=== PATIENT | female | born 1985 | race African-American/Black ===

== ENCOUNTER 2016-11-25 03:52 | Emergency (ER) | payer OTHER, MEDICAID ==
[2016-11-25] MEDS ORDERED: ACETAMINOPHEN 325 MG TABLET PO ONE (04:04)
[2016-11-25] MEDS ORDERED: ONDANSETRON 4 MG TAB.RAPDIS PO ONE (04:04)
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
[2016-11-25 05:14] VITALS: BP 131/80
[2016-11-25] MEDS ORDERED: HYDROMORPHONE HCL INJ/PF 2 MG/ML AMPULE ONE (09:02)
== END 2016-11-25 05:12 | disposition home or self-care (01) ==
LOC: ER 03:52
DX: S09.90XA Unspecified injury of head, initial encounter (principal); Y04.2XXA Assault by strike against or bumped into by another person, initial encounter
CPT/HCPCS: 99284; S0119

== ENCOUNTER 2016-12-03 17:07 | Emergency (ER) | payer MEDICAID, OTHER ==
[2016-12-03 17:28] VITALS: BP 134/95
[2016-12-03] MEDS ORDERED: CIPROFLOXACIN HCL/DEXAMETH OTIC DROP 7.5 ML AS ONE (18:24)
--- NOTE | 2016-12-03 18:26 | ER Document Report ---
HPI - HPI Pain Level: 3 Notes: Patient is a 31-year-old female presents the ED complaining of left ear pain and swelling 3 days. Patient states that she was swimming recently but began noticing the pain a few days ago. Patient states that she has available anything in that ear because of the pain. The pain does not radiate. The pain is described as sharp. Otherwise she is still eating and drinking without any difficulties. She has not noticed any discharge. Denies any drug allergies, daily medications, significant past medical history. Patient is from [place] and that is where her PCM is located. Patient admits to smoking but denies any other illicit drug use. Denies any fever, headache, nasal congestion/discharge , postnasal drip, sore throat, dysphagia, facial swelling, neck pain or stiffness, chest pain, palpitations, syncope, cough, wheeze, shortness of breath , dyspnea, abdominal pain, nausea/vomiting/diarrhea, dysuria, muscle aches/ joint pains, or rash. Denies any other recent travel, sick contacts, illness. - ROS Notes: REVIEW OF SYSTEMS: CONSTITUTIONAL : Denies fever, chills, or sweats. Denies recent illness. EENT: see hpi CARDIOVASCULAR: Denies chest pain. Denies palpitations or racing or irregular heart beat. Denies ankle edema. RESPIRATORY: Denies cough, cold, or chest congestion. Denies shortness of breath, difficulty breathing, or wheezing. GASTROINTESTINAL: Denies abdominal pain or distention. Denies nausea, vomiting , or diarrhea. Denies blood in vomitus, stools, or per rectum. Denies black, tarry stools. Denies constipation. GENITOURINARY: Denies difficulty urinating, painful urination, burning, frequency, blood in urine, or discharge. MUSCULOSKELETAL: Denies back or neck pain or stiffness. Denies joint pain or swelling. SKIN: Denies rash, lesions or sores. NEUROLOGICAL: Denies confusion or altered mental status. Denies passing out or loss of consciousness. Denies dizziness or lightheadedness. Denies headache. Denies weakness or paralysis or loss of use of either side. Denies problems with gait or speech. Denies sensory loss, numbness, or tingling. ALL OTHER SYSTEMS REVIEWED AND NEGATIVE. Dictation was performed using [employer] voice recognition software - CARDIOVASCULAR Cardiovascular: DENIES: Chest pain - DERM Skin Color: Normal Past Medical History - Social History Smoking Status: Current Every Day Smoker Chew tobacco use (# tins/day): No Frequency of alcohol use: None Drug Abuse: None Family History: Reviewed & Not Pertinent Neurological Medical History: Reports: Hx Seizures Renal/ Medical History: Denies: Hx Peritoneal Dialysis Past Surgical History: Reports: Hx Gynecologic Surgery - ovarian cyst x2 - Immunizations Hx Diphtheria, Pertussis, Tetanus Vaccination: Yes Vertical Provider Document - CONSTITUTIONAL Agree With Documented VS: Yes Notes: PHYSICAL EXAMINATION: GENERAL: Well-appearing, well-nourished and in no acute distress. HEAD: Atraumatic, normocephalic. EYES: Pupils equal round and reactive to light, extraocular movements intact, sclera anicteric, conjunctiva are normal. ENT: Lt EAC inflamed, erythemic with purulent d/c. Rt EAC wnl. TM's intact b/l without erythema, fluid, or perforation. Nares patent and without discharge. oropharynx clear without exudates. No tonsilar hypertrophy or erythema. Moist mucous membranes. No sinus tenderness. No facial swelling. No humberto's. Uvula midline. No palatine shift. No tongue protrusion. NECK: Normal range of motion, supple without lymphadenopathy. No rigidity/ meningismus. LUNGS: Breath sounds clear to auscultation bilaterally and equal. No wheezes rales or rhonchi. HEART: Regular rate and rhythm without murmurs, rubs, gallops. Extremities: No cyanosis, clubbing, or edema b/l. Peripheral pulses 2+. Capillary refill less than 2 seconds. PSYCH: Normal mood, normal affect. SKIN: Warm, Dry, normal turgor, no rashes or lesions noted. - INFECTION CONTROL TRAVEL OUTSIDE OF THE [place] IN LAST 30 DAYS: No - RESPIRATORY O2 Sat by Pulse Oximetry: 99 Course - Re-evaluation Re-evalutation: 12/03/16 18:35 Patient is afebrile, well-hydrated, 31-year-old female who presents the ED with acute left otitis externa based on H&P today. Vitals are stable. PE otherwise unremarkable. Low suspicion for any meningitis, pharyngeal/peritonsillar abscess, Ludwigs, sepsis, mastoiditis, or other systemic infection at this time. Wick was placed along with the use of Ciprodex patient is to continue at home twice daily for 7 days. Conservative measures otherwise for symptoms. Recheck with PCM this week. Return to the ED with any worsening/concerning symptoms otherwise as reviewed in discharge. Patient is in agreement. - Vital Signs Vital signs: Temp Pulse Resp BP Pulse Ox 98.7 F 75 12 134/95 H 99 12/03/16 17:26 12/03/16 17:26 12/03/16 17:26 12/03/16 17:26 12/03/16 17:26 Discharge - Discharge Clinical Impression: Acute otitis externa of left ear Qualifiers: Otitis externa type: unspecified type Qualified Code(s): H60.502 - Unspecified acute noninfective otitis externa, left ear Condition: Stable Disposition: HOME, SELF-CARE Instructions: Use of Ear Drops ([facility]), Using Ear Drops with a Wick ([facility]), Otitis Externa ([facility]), Acetaminophen Additional Instructions: Keep the ears clean Avoid use of Q-tips or placing anything in the ears Avoid swimming until infection is resolved Tylenol/ibuprofen as needed Use antibiotic drops as directed for full dose Recheck with your PCM this week Consider consult with ENT for ongoing/worsening symptoms Return to the ED with any worsening symptoms and/or development of fever, headache, facial swelling, trouble swallowing, drooling, chest pain, palpitations, syncope, shortness of breath, trouble breathing, abdominal pain, n /v/d, numbness/tingling, or other worsening symptoms that are concerning to you. Forms: Elevated Blood Pressure, Smoking Cessation Education Referrals: KATERINA ATKINSON MD [ACTIVE STAFF] - Follow up as needed
== END 2016-12-03 19:37 | disposition home or self-care (01) ==
LOC: ER 17:07
DX: H60.502 Unspecified acute noninfective otitis externa, left ear (principal); H92.02 Otalgia, left ear; F17.200 Nicotine dependence, unspecified, uncomplicated
CPT/HCPCS: 99282; J3490

== ENCOUNTER 2017-03-05 18:04 | Emergency (ER) | payer SELFPAY ==
[2017-03-05] MEDS ORDERED: NAPROXEN 250 MG TABLET PO ONE (18:32)
[2017-03-05] MEDS ORDERED: DIPHENHYDRAMINE HCL 25 MG CAPSULE PO ONE (18:32)
[2017-03-05] MEDS ORDERED: PROCHLORPERAZINE MALEATE 10 MG TABLET PO ONE (18:32)
--- NOTE | 2017-03-05 18:52 | ER Document Report ---
ED Headache - General Chief Complaint: Headache Stated Complaint: HEAD PAIN Time Seen by Provider: 03/05/17 18:29 Notes: This 31-year-old female patient comes emergency room complaining a right-sided headache for the past 3 days. There is some nausea associated with it. It is a throbbing pain. There is no fever. There is no sinus congestion. She states her last menstrual period was 2 weeks ago, however it was not normal and was not on time because she went for a long time without having a period. TRAVEL OUTSIDE OF THE [place] IN LAST 30 DAYS: No - Related Data Allergies/Adverse Reactions: No Known Allergies Allergy (Verified 03/05/17 18:09) Past Medical History - General Information source: Patient - Social History Smoking Status: Current Every Day Smoker Cigarette use (# per day): Yes Chew tobacco use (# tins/day): No Smoking Education Provided: No Frequency of alcohol use: None Drug Abuse: None Occupation: Employed Lives with: Family Family History: Reviewed & Not Pertinent - Past Medical History Cardiac Medical History: Reports: None Pulmonary Medical History: Reports: None Neurological Medical History: Reports: Hx Seizures - as a baby. No medications. Endocrine Medical History: Reports: None Renal/ Medical History: Reports: None GI Medical History: Reports: None Musculoskeltal Medical History: Reports None Psychiatric Medical History: Reports: None Past Surgical History: Reports: Hx Appendectomy, Hx Gynecologic Surgery - ovarian cyst x2 - Immunizations Hx Diphtheria, Pertussis, Tetanus Vaccination: Yes Review of Systems - Review of Systems Constitutional: No symptoms reported EENT: No symptoms reported Cardiovascular: No symptoms reported Respiratory: No symptoms reported Gastrointestinal: No symptoms reported Genitourinary: No symptoms reported Female Genitourinary: See HPI Musculoskeletal: No symptoms reported Skin: No symptoms reported Hematologic/Lymphatic: No symptoms reported Neurological/Psychological: See HPI Physical Exam - Vital signs Vitals: Temp Pulse Resp BP Pulse Ox 98.6 F 92 18 142/85 H 98 03/05/17 18:08 03/05/17 18:08 03/05/17 18:08 03/05/17 18:08 03/05/17 18:08 Interpretation: Hypertensive - General General appearance: Appears well, Alert In distress: None - HEENT Head: Normocephalic, Atraumatic, Tenderness - There is some tenderness to the right sided scalp Eyes: Normal Pupils: PERRL Neck: Other - Very tender to palpate the right posterior cervical muscles and trapezius muscle. Left-sided posterior cervical muscles are not tender. - Respiratory Respiratory status: No respiratory distress - Cardiovascular Rhythm: Regular - Back Back: Normal - Extremities General upper extremity: Normal inspection General lower extremity: Normal inspection - Neurological Neuro grossly intact: Yes - Psychological Associated symptoms: Normal affect, Normal mood - Skin Skin Temperature: Warm Skin Moisture: Dry Skin Color: Normal Course - Re-evaluation Re-evalutation: 03/05/17 19:59 Patient reports her headache is much better, there is still some tenderness palpate the right posterior cervical muscles and right temporal forehead muscles. - Vital Signs Vital signs: Temp Pulse Resp BP Pulse Ox 98.6 F 92 18 142/85 H 98 03/05/17 18:08 03/05/17 18:08 03/05/17 18:08 03/05/17 18:08 03/05/17 18:08 Discharge - Discharge Clinical Impression: Tension type headache Qualifiers: Headache chronicity pattern: acute headache Intractability: not intractable Qualified Code(s): G44.209 - Tension-type headache, unspecified, not intractable Condition: Stable Disposition: HOME, SELF-CARE Additional Instructions: Tension Headache: Your problem has been diagnosed as muscle tension headache. This very common type of headache occurs because of tightness in the muscles of the head and neck. The cause may be neck or jaw joint problems, but most commonly the cause is emotional stress. The headache may last hours or days. The treatment of uncomplicated tension headaches is rest and pain medication. Often, the newer antiinflammatory pain medications are prescribed, as these also decrease the irritability of the painful tissues. Muscle relaxers , cold packs, or warm packs are sometimes helpful. Anti-anxiety medication or narcotics are sometimes needed temporarily, but are best avoided in the long run. Your doctor has evaluated your headache problem, and finds no evidence of a serious health problem as a cause for the headache. If your headache becomes more severe, or if new symptoms develop (such as fever, stiff neck, vomiting, or decreasing alertness) you should be re-examined by the physician. REST IN A COOL, DARK QUIET ROOM. TRY ICE-PACKS OR MOIST HEAT TO THE PAINFUL NECK AND SCALP MUSCLES. TRY TAKING 2 ALEVE WITH BENADRYL FOR THE HEADACHE IF NEEDED. FOLLOW UP WITH A LOCAL MEDICAL DOCTOR IF NOT IMPROVING. RETURN TO THE EMERGENCY ROOM IF ANY NEW OR WORSENING SYMPTOMS.
[2017-03-05 20:09] VITALS: BP 128/77
== END 2017-03-05 20:06 | disposition home or self-care (01) ==
LOC: ER 18:04
DX: G44.209 Tension-type headache, unspecified, not intractable (principal); F17.210 Nicotine dependence, cigarettes, uncomplicated
CPT/HCPCS: 99283; 81025; S0183

== ENCOUNTER 2017-04-30 11:41 | Emergency (ER) | payer SELFPAY ==
[2017-04-30 11:49] VITALS: BP 135/98
[2017-04-30] MEDS ORDERED: PENICILLIN V POTASSIUM 500 MG TABLET PO ONE (13:06)
[2017-04-30] MEDS ORDERED: BUPIVACAINE HCL 0.5 % INJ/PF 30 ML SDV INJ ONE (13:06)
--- NOTE | 2017-04-30 13:06 | ER Document Report ---
HPI - HPI Patient complains to provider of: toothache Pain Level: 4 Context: Patient is a 32-year-old female presents emergency department complaining of right lower jaw pain. Patient states that this is been since Misael with swollen more yesterday but since gone down still has pain at the base of her tooth at. She does admit to a history of dental issues but has not followed up with a dentist due to no insurance. Denies any fevers, chills, difficulty swallowing, difficulty breathing, foul odor or drainage from the site.30 - CONSTITUTIONAL Constitutional: DENIES: Fever, Chills - EENT EENT: DENIES: Sore Throat, Ear Pain, Eye problems - NEURO Neurology: DENIES: Headache, Weakness, Vision blurred, Dizzinesss / Vertigo - CARDIOVASCULAR Cardiovascular: DENIES: Chest pain - RESPIRATORY Respiratory: DENIES: Trouble Breathing, Coughing - GASTROINTESTINAL Gastrointestinal: DENIES: Abdominal Pain, Black / Bloody Stools - URINARY Urinary: DENIES: Dysuria, Urgency, Frequency - REPRODUCTIVE LMP: 04/29/17 - MUSCULOSKELETAL Musculoskeletal: DENIES: Extremity pain Past Medical History - Social History Smoking Status: Current Every Day Smoker Chew tobacco use (# tins/day): No Frequency of alcohol use: None Drug Abuse: None Family History: Reviewed & Not Pertinent Patient has suicidal ideation: No Patient has homicidal ideation: No Neurological Medical History: Reports: Hx Seizures - as a baby. No medications. Renal/ Medical History: Denies: Hx Peritoneal Dialysis Past Surgical History: Reports: Hx Appendectomy, Hx Gynecologic Surgery - ovarian cyst x2 - Immunizations Hx Diphtheria, Pertussis, Tetanus Vaccination: Yes Vertical Provider Document - CONSTITUTIONAL Agree With Documented VS: Yes Notes: PHYSICAL EXAM GENERAL: Alert, interacts well. HEAD: Normocephalic, atraumatic. ENT: Oral mucosa moist, tongue midline. Tenderness with mild swelling at the base of #30 without evidence of active drainage. EXTREMITIES: Moves all 4 extremities spontaneously. She does admit to discomfort in the left axilla but presentation is consistent with hidradenitis supra T valve without active inflammation. No edema, radial and dorsalis pedis pulses 2/4 bilaterally. No cyanosis. NEUROLOGICAL: Alert and oriented x4. Normal speech. PSYCH: Normal affect, normal mood. SKIN: Warm, dry, normal turgor. No rashes or lesions noted. - INFECTION CONTROL TRAVEL OUTSIDE OF THE U.S. IN LAST 30 DAYS: No - RESPIRATORY O2 Sat by Pulse Oximetry: 100 Course - Re-evaluation Re-evalutation: 04/30/17 13:26 Patient is a 32-year-old female who is hemodynamically stable, no acute distress and afebrile. Presentation is most consistent with likely an infected tooth. Airway is patent. Vitals within normal limits. Patient is able swallow without any difficulty. There is no significant facial swelling. Patient will be started on antibiotics. I've instructed to follow-up with dentistry as earliest ability for definitive management. Otherwise patient's left axilla is consistent with hidradenitis supra edema. No indications at this time for active cellulitis or concerns for active inflammation requiring I& D. Return precautions and follow-up recommendations have been discussed at length. - Vital Signs Vital signs: Temp Pulse Resp BP Pulse Ox 98.5 F 73 16 135/98 H 100 04/30/17 11:48 04/30/17 11:48 04/30/17 11:48 04/30/17 11:48 04/30/17 11:48 Discharge - Discharge Clinical Impression: Toothache, Axillary hidradenitis suppurativa Condition: Good Disposition: HOME, SELF-CARE Additional Instructions: TOOTHACHE: Your pain is due to dental decay. The tooth must be repaired in order for you to feel better. You will, therefore, be referred to a dentist. We do not have dentists on the staff at [facility]. Severe swelling or drainage around a tooth usually means a dental abscess. This also requires evaluation and treatment by the dentist, but antibiotics may be prescribed while awaiting dental treatment. You should be rechecked immediately if you develop major swelling of the face, increasing pain, a lump in the jaw or gums, headache, difficulty swallowing, or fever. PENICILLIN V K: You have been given a prescription for Penicillin VK. Your physician has determined that this is the best antibiotic for your condition. Pen VK can be taken with meals, however more of the antibiotic gets into the bloodstream if it's taken on an empty stomach. Penicillin usually has no side effects. However, allergy to penicillins is common. If you have had an allergic reaction to any drug of the penicillin family, you should never take any other penicillin. Notify your doctor at once if you develop hives, itching, swelling, faintness, or shortness of breath. FOLLOW-UP CARE: You have been referred for follow-up care to the dentists listed below. Call the dentists office for an appointment as you were instructed or within the next two days. If you experience worsening or a significant change in your symptoms, notify the physician immediately or return to the Emergency Department at any time for re-evaluation. [facility] [address] [place], [place] Monday mornings, by appointment [facility] [address] [place] [address] [facility] [address] [facility] [address] [facility] ([facility]) [facility] [address] [email or web address] [address] [place] [address] Monday- 8:00am to 5:00 pm Will see patients from other [facility]. Charges based on income and family size and accepts Medicare, Medicaid, and Insurances Will pull molars [facility] Student Clinics [facility] [address] Hours of Operation 8:00 am - 4:30 pm [facility] Tarun Chatman [address] [place] [id number] For Patients If you need a regular family dentist and are considering the [facility] [employer] as a care provider, the first thing you'll need to do is make an appointment in our Screening Clinic by calling [phone] between the hours of 8:00 a.m. and 5:00 p.m. Monday through Monday. Because we are a teaching program, we will spend more time with you for each visit, and we may ask you to make a few extra visits to complete your dental care. We think you will enjoy our compassionate care, affordable fees, and friendly environment. Parking Parking at [facility] is handy, free, and easy. Patients are asked to park on the [address] side of the building in areas designated as Patient Parking. Screening Clinic The purpose of the screening appointment is to gather information about your overall health, dental treatment needs, and to determine if treatment in our student clinics is right for you. We regret that all patients screened cannot be accepted for dental care in our student clinics. We will offer alternative treatment options if that is the case. Screening is not a treatment planning appointment, and no treatment other than a limited examination/diagnosis will be performed at the screening appointment. Your appointment will be in [facility] located at [address] in [place]. Fees and Payment There is no charge for the initial screening appointment except for fees incurred for dental x-rays. Patients will be charged for dental x-rays and treatment during future visits. The cost of dental care in student and resident clinics is less than at most private dental offices. Medicaid and most private dental insurance plans are accepted. We accept lowry, credit cards, and personal checks. As a patient, you will receive detailed information concerning our financial policies. Prescriptions: Penicillin V Potassium [Penicillin Vk 500 mg Tablet] 500 mg PO TID 7 Days #21 tablet Forms: Return to Work
== END 2017-04-30 14:05 | disposition home or self-care (01) ==
LOC: ER 11:41
DX: L73.2 Hidradenitis suppurativa (principal); K08.89 Other specified disorders of teeth and supporting structures; R68.84 Jaw pain; F17.200 Nicotine dependence, unspecified, uncomplicated
CPT/HCPCS: 99282

== ENCOUNTER 2017-05-26 01:45 | Emergency (ER) | payer SELFPAY ==
[2017-05-26 02:09] LABS: ABSOLUTE EOSINOPHILS # (AUTO) 0.2 10^3/uL (0.0-0.6); ABSOLUTE LYMPHOCYTES (AUTO) 2.4 10^3/uL (0.5-4.7); ABSOLUTE MONOCYTES (AUTO) 0.8 10^3/uL (0.1-1.4); ABSOLUTE NEUT (AUTO) 4.5 10^3/uL (1.7-8.2); BASOPHILS % (AUTO) 0.3 % (0-2); EOSINOPHILS % (AUTO) 2.6 % (0-6); HEMOGLOBIN 11.6 g/dL (12.0-15.5); LYMPHOCYTES % (AUTO) 30.3 % (13-45); MEAN CORPUSCULAR HEMOGLOBIN 27.4 pg (27.0-33.4); MEAN CORPUSCULAR HGB CONC 32.2 g/dL (32.0-36.0); MEAN CORPUSCULAR VOLUME 85 fl (80-97); MONOCYTES % (AUTO) 9.6 % (3-13); PLATELET COUNT 282 10^3/uL (150-450); RED BLOOD COUNT 4.23 10^6/uL (3.72-5.28); RED CELL DISTRIBUTION WIDTH 17.3 % (11.5-14.0); SEGMENTED NEUTROPHILS % (AUTO) 57.2 % (42-78); TOTAL CELLS COUNTED % (AUTO) 100 %; WHITE BLOOD COUNT 7.8 10^3/uL (4.0-10.5)
--- NOTE | 2017-05-26 02:15 | RADIOLOGY REPORT (SQ) ---
EXAM DESCRIPTION: CHEST SINGLE VIEW CLINICAL HISTORY: palpitations COMPARISON: None. FINDINGS: Single frontal view of the chest. The cardiomediastinal silhouette has normal size and contour. No consolidation, pneumothorax, or pleural effusion. No displaced rib fractures identified. Upper abdominal soft tissues are unremarkable. Leads overlie the chest. IMPRESSION: 1. No acute pulmonary process identified.
[2017-05-26 02:19] LABS: ALANINE AMINOTRANSFERASE 16 U/L (9-52); ALBUMIN 3.3 g/dL (3.5-5.0); ALKALINE PHOSPHATASE 66 U/L (38-126); ANION GAP 8 (5-19); ASPARTATE AMINO TRANSFERASE 16 U/L (14-36); BLOOD UREA NITROGEN 11 mg/dL (7-20); CALCIUM 9.1 mg/dL (8.4-10.2); CARBON DIOXIDE 27 mmol/L (22-30); CHLORIDE 105 mmol/L (98-107); CREATINE KINASE 79 U/L (30-135); GLUCOSE 120 mg/dL (75-110); POTASSIUM 3.7 mmol/L (3.6-5.0); SODIUM 139.6 mmol/L (137-145); TOTAL PROTEIN 6.3 g/dL (6.3-8.2)
[2017-05-26 02:21] LABS: BILIRUBIN,TOTAL < 0.1 mg/dL (0.2-1.3)
[2017-05-26 03:10] LABS: CREATINE KINASE MB < 0.22 ng/mL (<4.55); TROPONIN I < 0.012 ng/mL
[2017-05-26] MEDS ORDERED: ONDANSETRON HCL INJ/PF 4 MG/2 ML SDV IV ONE (03:20)
[2017-05-26] MEDS ORDERED: DIPHENHYDRAMINE HCL 50 MG/ML VIAL IV ONE (03:20)
[2017-05-26] MEDS ORDERED: NORMAL SALINE 1000 ML 1,000 ML IV ONE (03:20)
[2017-05-26] MEDS ORDERED: PROCHLORPERAZINE EDISYLATE INJ 10 MG/2 ML VIAL IV ONE (03:20)
--- NOTE | 2017-05-26 03:44 | ER Document Report ---
ED General - General Mode of Arrival: Ambulatory Information source: Patient TRAVEL OUTSIDE OF THE U.S. IN LAST 30 DAYS: No <MERLINE PRESCOTT - Last Filed: 05/26/17 03:40> <EVELYN HOROWITZ - Last Filed: 05/26/17 04:40> - General Chief Complaint: Palpitations Stated Complaint: IRREGULAR HEART RATE Time Seen by Provider: 05/26/17 01:53 Notes: Patient is a 32-year-old female who presents to the emergency department today with complaints of "getting out of the shower, holding her phone, and shaking". Patient states her thumbs began shaking uncontrollably. Patient states she had an elevated heart rate which has never happened before. Patient states she did not feel anxious prior to this. Patient complains of a headache now which is uncommon for her. Patient denies any recent illnesses, history of anxiety, cough, nausea, or vomiting. (MERLINE PRESCOTT) - Related Data Allergies/Adverse Reactions: No Known Allergies Allergy (Verified 04/30/17 11:41) Past Medical History - General Information source: Patient - Social History Smoking Status: Current Every Day Smoker Cigarette use (# per day): No Chew tobacco use (# tins/day): No Frequency of alcohol use: None Drug Abuse: None Lives with: Family Family History: Reviewed & Not Pertinent Patient has suicidal ideation: No Patient has homicidal ideation: No Neurological Medical History: Reports: Hx Seizures - as a baby. No medications. Past Surgical History: Reports: Hx Appendectomy, Hx Gynecologic Surgery - ovarian cyst x2 - Immunizations Hx Diphtheria, Pertussis, Tetanus Vaccination: Yes <MERLINE PRESCOTT - Last Filed: 05/26/17 03:40> Review of Systems - Review of Systems Constitutional: No symptoms reported EENT: No symptoms reported Cardiovascular: No symptoms reported Respiratory: No symptoms reported Gastrointestinal: No symptoms reported Genitourinary: No symptoms reported Female Genitourinary: No symptoms reported Musculoskeletal: No symptoms reported Skin: No symptoms reported Hematologic/Lymphatic: No symptoms reported Neurological/Psychological: See HPI, Headaches, Other - "shaking" -: Yes All other systems reviewed and negative <MERLINE PRESCOTT - Last Filed: 05/26/17 03:40> Physical Exam <MERLINE PRESCOTT - Last Filed: 05/26/17 03:40> <EVELYN HOROWITZ - Last Filed: 05/26/17 04:40> - Vital signs Vitals: Resp Pulse Ox 15 98 05/26/17 01:56 05/26/17 01:56 - Notes Notes: Physical Exam: General: Alert, appears well. HEENT: Normocephalic. Atraumatic. PERRL. Extraocular movements intact. Oropharynx clear. Neck: Supple. Non-tender. Respiratory: No respiratory distress. Clear and equal breath sounds bilaterally. Cardiovascular: Regular rate and rhythm. Abdominal: Normal Inspection. Non-tender. No distension. Normal Bowel Sounds. Back: Non-tender. No deformity or step off. Extremities: Moves all four extremities. Upper extremities: Normal inspection. Normal ROM. Lower extremities: Normal inspection. No edema. Normal ROM. Neurological: Normal cognition. AAOx4. Normal speech. Psychological: Normal affect. Normal Mood. Skin: Warm. Dry. Normal color. (MERLINE PRESCOTT) Course - Laboratory Result Diagrams: 05/26/17 01:58 05/26/17 01:58 <MERLINE PRESCOTT - Last Filed: 05/26/17 03:40> - Laboratory Result Diagrams: 05/26/17 01:58 05/26/17 01:58 - Diagnostic Test Radiology reviewed: Reports reviewed - EKG Interpretation by Nm EKG shows normal: Sinus rhythm Rate: Tachycardia Rhythm: NSR <EVELYN HOROWITZ - Last Filed: 05/26/17 04:40> - Re-evaluation Re-evalutation: 05/26/17 04:38 Patient with no acute findings on CT had her blood work. Feels better after fluids and medications. Patient will be discharged home with medications for headache and work note. She is to follow-up with her doctor. Stable for discharge. Understands agrees with plan. Return if any worsening or concerning symptoms. (EVELYN HOROWITZ) - Vital Signs Vital signs: Temp Pulse Resp BP Pulse Ox 98.4 F 14 116/74 98 05/26/17 02:00 05/26/17 04:22 05/26/17 04:22 05/26/17 04:22 - Laboratory Laboratory results interpreted by ca: 05/26/17 05/26/17 01:58 01:58 Hgb 11.6 L RDW 17.3 H Glucose 120 H Total Bilirubin < 0.1 L Albumin 3.3 L Discharge <MERLINE PRESCOTT - Last Filed: 05/26/17 03:40> <EVELYN HOROWITZ - Last Filed: 05/26/17 04:40> - Discharge Clinical Impression: Palpitations Headache Qualifiers: Headache type: unspecified Headache chronicity pattern: unspecified pattern Intractability: not intractable Qualified Code(s): R51 - Headache Instructions: Palpitations (Irregular or Rapid Heartrate) ([facility]), Headache ([facility]) Prescriptions: Ondansetron [Zofran Odt 4 mg Tablet] 1 tab PO Q6HP PRN #15 tab.rapdis PRN Reason: For Nausea/Vomiting Metoclopramide HCl [Reglan 10 mg Tablet] 1 tab PO TIDP PRN #25 tablet PRN Reason: Forms: Return to Work Scribe Attestation: 05/26/17 04:39 I personally performed the services described in the documentation, reviewed and edited the documentation which was dictated to the scribe in my presence, and it accurately records my words and actions. (EVELYN HOROWITZ) Scribe Documentation - Scribe Written by So:: So Fang, 05/26/2017 0343 acting as scribe for :: [place] <MERLINE PRESCOTT - Last Filed: 05/26/17 03:40>
--- NOTE | 2017-05-26 04:37 | RADIOLOGY REPORT (SQ) ---
EXAM DESCRIPTION: CT HEAD WITHOUT CLINICAL HISTORY: headache COMPARISON: None available TECHNIQUE: Axial CT of the head obtained from the skull apex to the skull base without contrast. FINDINGS: No acute intracranial hemorrhage identified. No mass, mass effect, shift of the midline, abnormal extra-axial fluid collection or CT evidence of acute ischemic change identified. The ventricular system is unremarkable. No acute abnormalities of the supratentorial white matter, basal ganglia, cerebellum, or brainstem. The visualized paranasal sinuses and the mastoids are clear. No skull fracture identified. Visualized orbits and globes are unremarkable. DLP:1292.1 mGy-cm IMPRESSION: 1. No acute intracranial abnormality by CT criteria. This exam was performed according to our departmental dose-optimization program, which includes automated exposure control, adjustment of the mA and/or kV according to patient size and/or use of iterative reconstruction technique.
[2017-05-26 05:14] VITALS: BP 120/77
--- NOTE | 2017-05-26 07:55 | EKG REPORT ---
SEVERITY:- BORDERLINE ECG - SINUS TACHYCARDIA PROBABLE LEFT ATRIAL ABNORMALITY : Confirmed by: Frank Welsh MD 26-May-2017 07:54:53
== END 2017-05-26 05:14 | disposition home or self-care (01) ==
LOC: ER 01:45
DX: R00.2 Palpitations (principal); R51 Headache; F17.200 Nicotine dependence, unspecified, uncomplicated
CPT/HCPCS: 93005; 99285; 96361; 96374; 96375; 36415; 82553; 82550; 84443; 84703; 85025; 80053; 84484; 71045; 70450; 93010; J1200; J0780; J2405; J7030

== ENCOUNTER 2018-09-24 08:21 | Emergency (ER) | payer SELFPAY ==
[2018-09-24] MEDS ORDERED: IBUPROFEN 600 MG TABLET PO ONE (09:47)
[2018-09-24] MEDS ORDERED: ACETAMINOPHEN 325 MG TABLET PO ONE (09:47)
[2018-09-24] MEDS ORDERED: PENICILLIN V POTASSIUM 500 MG TABLET PO ONE (09:47)
[2018-09-24] MEDS ORDERED: LIDOCAINE 2% VISCOUS SOLN 20 ML UDCUP PO ONE (09:47)
--- NOTE | 2018-09-24 09:47 | ER Document Report ---
HPI - HPI Time Seen by Provider: 09/24/18 09:15 Pain Level: 4 Context: Patient is a 33-year-old female who presents emergency department with a chief complaint of right sided jaw pain. She states that she has poor dentition and is being treated by [facility]. She has tooth pain at teeth #31 and 2. She states that her symptoms started this past Monday and she has an aching feeling. She states that she also has swelling in her jaw and feels it is hard to swallow. She denies any change in her voice. Denies any fever, difficulty breathing, shortness of breath, or other symptoms. - CONSTITUTIONAL Constitutional: DENIES: Fever, Chills - EENT EENT: DENIES: Sore Throat, Ear Pain, Nasal Drainage-Clear, Nasal Drainage- Purulent, Congestion, Eye problems Notes: Tooth pain per HPI - NEURO Neurology: DENIES: Headache, Weakness - CARDIOVASCULAR Cardiovascular: DENIES: Chest pain - RESPIRATORY Respiratory: DENIES: Trouble Breathing, Coughing - GASTROINTESTINAL Gastrointestinal: DENIES: Abdominal Pain, Nausea, Patient vomiting, Diarrhea - REPRODUCTIVE Reproductive: DENIES: : - DERM Skin Color: Normal Skin Problems: None Past Medical History - Social History Smoking Status: Never Smoker Family History: Reviewed & Not Pertinent Neurological Medical History: Reports: Hx Seizures - as a baby. No medications. Renal/ Medical History: Denies: Hx Peritoneal Dialysis Past Surgical History: Reports: Hx Appendectomy, Hx Gynecologic Surgery - ovarian cyst x2 - Immunizations Hx Diphtheria, Pertussis, Tetanus Vaccination: Yes Vertical Provider Document - CONSTITUTIONAL Agree With Documented VS: Yes Exam Limitations: No Limitations General Appearance: No Apparent Distress - INFECTION CONTROL TRAVEL OUTSIDE OF THE U.S. IN LAST 30 DAYS: No - HEENT HEENT: Atraumatic, Normocephalic, PERRLA Mouth Diagram: 1 - Dental carry 2 - Dental carry - NECK Neck: Normal Inspection, Supple - RESPIRATORY Respiratory: Breath Sounds Normal, No Respiratory Distress - CARDIOVASCULAR Cardiovascular: Regular Rate, Regular Rhythm, No Murmur Pulses: Normal: Radial - MUSCULOSKELETAL/EXTREMETIES Musculoskeletal/Extremeties: FROM - NEURO Level of Consciousness: Awake, Alert, Appropriate Motor/Sensory: No Motor Deficit, No Sensory Deficit - DERM Integumentary: Warm, Dry, No Rash Course - Re-evaluation Re-evalutation: 09/24/18 09:48 Patient's physical exam and history is most consistent with a infected tooth. Patient is able to swallow, no facial swelling noted, airways pain, vital signs are normal. Uvula is midline. I do not suspect Nav's angina, peritonsilar abscess, or airway obstruction. The patient will be started on oral antibiotics. I have given the patient education on their antibiotics. Patient was given instructions to follow-up with a dentist this week. Return precautio ns were given. Verbal discharge instructions were given. Patient verbalized understanding. Patient is stable for discharge. - Vital Signs Vital signs: Temp Pulse Resp BP Pulse Ox 99.6 F 83 20 149/105 H 97 09/24/18 08:31 09/24/18 08:31 09/24/18 08:31 09/24/18 08:31 09/24/18 08:31 Discharge - Discharge Clinical Impression: Toothache, Jaw pain Condition: Stable Disposition: HOME, SELF-CARE Instructions: Penicillin V K ([facility]), Toothache ([facility]) Additional Instructions: You have been seen in the emergency department for a toothache. You may take ibuprofen 600 mg and Tylenol 1000 mg every 6 hours as needed for the pain. You have also been given topical lidocaine. Placed that to the affected tooth as needed to help with pain. You have also been prescribed antibiotics. Please take the antibiotics as prescribed, even if you start to feel better. If you develop a fever greater than 100.4 F, or have any symptoms that are worrisome to you, please return to the emergency department. Please follow-up with a dentist this week in regards to your visit. Please follow-up with your dentist at [facility] after you finish your antibiotics. Prescriptions: Penicillin V Potassium [Penicillin Vk 500 mg Tablet] 500 mg PO BID #20 tablet
[2018-09-24 10:12] VITALS: BP 148/112
== END 2018-09-24 10:12 | disposition home or self-care (01) ==
LOC: ER 08:21
DX: K02.9 Dental caries, unspecified (principal); R68.84 Jaw pain; K08.89 Other specified disorders of teeth and supporting structures
CPT/HCPCS: 99283; J3490

== ENCOUNTER 2018-10-10 12:38 | Emergency (ER) | payer SELFPAY ==
--- NOTE | 2018-10-10 13:37 | ER Document Report ---
ED Medical Screen (RME) - General Chief Complaint: Jaw Pain Stated Complaint: JAW PAIN Time Seen by Provider: 10/10/18 13:34 Mode of Arrival: Ambulatory Information source: Patient Notes: 33-year-old female presented to ED for severe right jaw pain going down the right side of her neck submandibular swelling. She does have significant swelling to her teeth #32 and 31. She has difficulty opening her mouth. She states she is able to swallow but with a lot of pain. She states that the dental pain is been for at least 2 weeks but there is severe swelling to the neck is only been for couple days. Patient is alert oriented respirations regular and unlabored speaking in full sentences. I have greeted and performed a rapid initial assessment of this patient. A comprehensive ED assessment and evaluation of the patient, analysis of test results and completion of medical decision making process will be conducted by an additional ED providers. Dictation of this chart was performed using voice recognition software; therefore, there may be some unintended grammatical errors. TRAVEL OUTSIDE OF THE U.S. IN LAST 30 DAYS: No - Related Data Allergies/Adverse Reactions: No Known Allergies Allergy (Verified 10/10/18 13:30) Past Medical History - Social History Frequency of alcohol use: None Drug Abuse: None Neurological Medical History: Reports: Hx Seizures - as a baby. No medications. Renal/ Medical History: Denies: Hx Peritoneal Dialysis Past Surgical History: Reports: Hx Appendectomy, Hx Gynecologic Surgery - ovarian cyst x2 - Immunizations Hx Diphtheria, Pertussis, Tetanus Vaccination: Yes Physical Exam - Vital signs Vitals: Temp Pulse Resp BP Pulse Ox 98.8 F 80 18 151/97 H 98 10/10/18 12:43 10/10/18 12:43 10/10/18 12:43 10/10/18 12:43 10/10/18 12:43 Course - Vital Signs Vital signs: Temp Pulse Resp BP Pulse Ox 98.8 F 80 18 151/97 H 98 10/10/18 12:43 10/10/18 12:43 10/10/18 12:43 10/10/18 12:43 10/10/18 12:43
[2018-10-10 14:16] LABS: ABSOLUTE BASOPHILS # (AUTO) 0.1 10^3/uL (0.0-0.2); ABSOLUTE EOSINOPHILS # (AUTO) 0.1 10^3/uL (0.0-0.6); ABSOLUTE MONOCYTES (AUTO) 0.8 10^3/uL (0.1-1.4); BASOPHILS % (AUTO) 0.8 % (0-2); EOSINOPHILS % (AUTO) 0.6 % (0-6); HEMATOCRIT 38.2 % (36.0-47.0); HEMOGLOBIN 12.8 g/dL (12.0-15.5); LYMPHOCYTES % (AUTO) 22.4 % (13-45); MEAN CORPUSCULAR HEMOGLOBIN 29.4 pg (27.0-33.4); MEAN CORPUSCULAR HGB CONC 33.4 g/dL (32.0-36.0); MEAN CORPUSCULAR VOLUME 88 fl (80-97); MONOCYTES % (AUTO) 9.3 % (3-13); PLATELET COUNT 352 10^3/uL (150-450); RED BLOOD COUNT 4.35 10^6/uL (3.72-5.28); RED CELL DISTRIBUTION WIDTH 13.4 % (11.5-14.0); SEGMENTED NEUTROPHILS % (AUTO) 66.9 % (42-78); TOTAL CELLS COUNTED % (AUTO) 100 %
[2018-10-10 14:37] LABS: ALANINE AMINOTRANSFERASE < 6 U/L (9-52); ALBUMIN 3.9 g/dL (3.5-5.0); ALKALINE PHOSPHATASE 86 U/L (38-126); ANION GAP 5 (5-19); ASPARTATE AMINO TRANSFERASE 24 U/L (14-36); BILIRUBIN,DIRECT 0.2 mg/dL (0.0-0.4); BILIRUBIN,TOTAL 0.4 mg/dL (0.2-1.3); BLOOD UREA NITROGEN 8 mg/dL (7-20); CALCIUM 8.9 mg/dL (8.4-10.2); CARBON DIOXIDE 30 mmol/L (22-30); CHLORIDE 102 mmol/L (98-107); GLUCOSE 87 mg/dL (75-110); POTASSIUM 3.9 mmol/L (3.6-5.0); TOTAL PROTEIN 8.1 g/dL (6.3-8.2)
--- NOTE | 2018-10-10 15:52 | RADIOLOGY REPORT (SQ) ---
EXAM DESCRIPTION: CT SOFT TISSUE NECK WITH COMPLETED DATE/TIME: 10/10/2018 3:18 pm REASON FOR STUDY: Swelling to the right jaw and neck/dental infectio COMPARISON: None. TECHNIQUE: Post IV contrasted scanning from skull base through lung apices with review of bone, soft tissue and lung windows. Reconstructed coronal and sagittal MPR images reviewed. All images stored on PACS. All CT scanners at this facility use dose modulation, iterative reconstruction, and/or weight based d osing when appropriate to reduce radiation dose to as low as reasonably achievable (ALARA). [facility]: Dose Right [facility]: CareDose [facility]: Dose Right [facility]: Teradose 4D [facility]: FilmLoop CONTRAST TYPE AND DOSE: contrast/concentration: Isovue 350.00 mg/ml; Total Contrast Delivered: 75.0 ml; Total Saline Delivered: 50.0 ml RENAL FUNCTION: Creatinine 0.8 RADIATION DOSE: CT Rad equipment meets quality standard of care and radiation dose reduction techniq ues were employed. CTDIvol: 16.6 mGy. DLP: 508 mGy-cm. . LIMITATIONS: None. FINDINGS: A 1.6 x 1.5 x 1 cm abscess is present along the medial/buccal aspect of the right mandibul ar posterior right lower molar teeth with periapical tooth root lucencies and dental caries. There i s adjacent phlegmon extending into the submandibular triangle and parapharyngeal space with very mild mass effect on the rightward hypopharyngeal airway. These changes are best shown on axial images 46 through 55, and coronal images 29 through forty five. A 2 x 1.3 cm lymph node is present along the right submandibular triangle on axial image 54. A 1.8 x 1 cm right submental lymph node is present on axial image 59. SKULL BASE: Inferior brain parenchyma in the field of view is unremarkable MAJOR SALIVARY GLANDS: No solid or cystic masses. No inflammatory changes. LYMPHADENOPATHY: As above MUCOSAL MASSES OR ASYMMETRY: As above. LARYNX/CORDS: No abnormal findings. VASCULAR STRUCTURES: The major vessels are patent. LUNG APICES: Clear. BONES: Intact. THYROID: Normal size. No masses. PARANASAL SINUSES: Clear. OTHER: No other significant finding. IMPRESSION: Abcess along the buccal/medial mandibular angle related to right lower molar tooth smooth s and periapical tooth root abcess TECHNICAL DOCUMENTATION: JOB ID: [id number] Quality ID # [id number]: Final reports with documentation of one or more dose reduction techniques (e.g., Au tomated exposure control, adjustment of the mA and/or kV according to patient size, use of iterative reconstruction technique) 2010 [employer]- All Rights Reserved Reading location - IP/workstation name: [email or web address]
--- NOTE | 2018-10-10 21:48 | ER Document Report ---
ED General - General Chief Complaint: Jaw Pain Stated Complaint: JAW PAIN Time Seen by Provider: 10/10/18 13:34 Mode of Arrival: Ambulatory Notes: 33-year-old female with poor dentition presents to the emergency department for severe right jaw pain and difficulty opening her jaw. She is also complaining of right jaw and right neck swelling. Patient is able to swallow but does complain of dysphagia, is able to control her secretions. Denies any respiratory distress or airway compromise. Patient had a dental appointment today at 4 PM but opted to come to the emergency department due to her pain level. She states that the pain started about 2 weeks ago but the swelling occurred only about 2 days ago and got acutely worse today. She is able to speak in full sentences. No evidence of respiratory distress. She denies fevers or chills, dizziness or lightheadedness, shortness of breath or chest pain. TRAVEL OUTSIDE OF THE [place] IN LAST 30 DAYS: No - Related Data Allergies/Adverse Reactions: No Known Allergies Allergy (Verified 10/10/18 13:30) Past Medical History - General Information source: Patient - Social History Smoking Status: Never Smoker Frequency of alcohol use: None Drug Abuse: None Family History: Reviewed & Not Pertinent Patient has suicidal ideation: No Patient has homicidal ideation: No Neurological Medical History: Reports: Hx Seizures - as a baby. No medications. Renal/ Medical History: Denies: Hx Peritoneal Dialysis Past Surgical History: Reports: Hx Appendectomy, Hx Gynecologic Surgery - ovarian cyst x2 - Immunizations Hx Diphtheria, Pertussis, Tetanus Vaccination: Yes Review of Systems - Review of Systems Constitutional: See HPI EENT: No symptoms reported Cardiovascular: See HPI Respiratory: See HPI Gastrointestinal: See HPI Genitourinary: No symptoms reported Female Genitourinary: No symptoms reported Musculoskeletal: No symptoms reported Skin: No symptoms reported Hematologic/Lymphatic: No symptoms reported Neurological/Psychological: No symptoms reported Physical Exam - Vital signs Vitals: Temp Pulse Resp BP Pulse Ox 98.8 F 80 18 151/97 H 98 10/10/18 12:43 10/10/18 12:43 10/10/18 12:43 10/10/18 12:43 10/10/18 12:43 - Notes Notes: PHYSICAL EXAMINATION: Reviewed vital signs and charting by RN GENERAL: Well-appearing, well-nourished and in no acute distress. HEAD: Atraumatic, swelling of the right mandible that extends submental and into the right side of her neck. EYES: Pupils are 3 mm and equal/round/reactive to light, extraocular movements intact, sclera anicteric, conjunctiva are normal. ENT: Nares patent bilaterally, patient with trismus and difficulty opening her mouth, significant bugle swelling on the right side with purulent discharge coming from the #32 tooth, I was unable to identify an area of fluctuance. Moist mucous membranes. NECK: Slightly limited range of motion when turning her head to the left, significant lymphadenopathy submental and submandibular nodes LUNGS: Breath sounds present, equal, and clear to auscultation bilaterally. No wheezes, rales, or rhonchi. HEART: Regular rate and rhythm without murmurs, rubs, or gallops. 2+ peripheral pulses. Normal capillary refill. ABDOMEN: Soft, nontender, nondistended. Normoactive bowel sounds. No guarding, no rebound. No masses appreciated. SKIN: No rashes or lesions, see ENT for mouth exam Course - Re-evaluation Re-evalutation: 10/10/18 22:10 Overall well-appearing and nontoxic, afebrile, vital signs within normal limits. Soft tissue CT of her neck showed an abscess bugle/medial mandibular angle extends of #31 and 32 teeth. 10/10/18 22:11 10/10/18 22:15 10/10/18 22:[address] Reyes, ENT on-call, for consultation and he agreed to consult hospitalist for an admission. I then called Dr. Landeros, hospitalist, who st ated that I need to call the surgeon prior to him accepting the patient. I called Dr. Reyes back and him awaiting his return call. 10/10/18 23:[address] Reyes and he was able to view the images. He had very low concern for airway compromise and because patient will follow up with dental tomorrow we will send her home on double coverage with clindamycin and Augmentin. Patient is speaking in full sentences and she no evidence of respiratory compromise or obstruction. I explained the plan to the patient and she is comfortable with the plan. Vital signs are within normal limits and she is stable for discharge. 10/11/18 07:58 - Vital Signs Vital signs: Temp Pulse Resp BP Pulse Ox 98.4 F 78 19 131/74 H 99 10/11/18 00:35 10/11/18 00:35 10/11/18 00:35 10/11/18 00:35 10/11/18 00:35 - Laboratory Result Diagrams: 10/10/18 14:00 10/10/18 14:00 Laboratory results interpreted by me: 10/10/18 14:00 ALT < 6 L Discharge - Discharge Clinical Impression: Periapical abscess, Phlegmon Condition: Good Disposition: HOME, SELF-CARE Instructions: Abscess ([facility]) Additional Instructions: You were seen in the emergency department this evening for a significant dental infection and abscess. CT scan showed that you have something called a periapical abscess that is extending into your jaw. This explains all the significant swelling. You got 1 dose of IV antibiotics while you are here. I am sending you home on 2 medications called clindamycin and Augmentin. Please take these medications as directed and take them until they are complete. It is critically important that you follow-up with the dentist in the morning. If you develop tightness in your throat, shortness of breath, feel like you are having a hard time breathing, or unable to handle your secretions, or have any other concerning symptoms please immediately return to the emergency department. Prescriptions: Amox Tr/Potassium Clavulanate [Augmentin 875-125 mg Tablet] 1 tab PO BID #14 tablet RX: Clindamycin HCl [Cleocin 150 mg Capsule] 450 mg PO TID 7 Days #63 capsule
[2018-10-10] MEDS ORDERED: CLINDAMYCIN 900 MG/D5W RTU 900 MG/50 ML RTUPB IV ONE (22:04)
[2018-10-10] MEDS ORDERED: AMPICILLIN SOD/SULBACTAM 3 GM VIAL IV ONE (22:23)
[2018-10-10] MEDS ORDERED: DEXAMETHASONE SOD PHOS INJ 10 MG/1 ML VIAL IV ONE (22:35)
[2018-10-10] MEDS ORDERED: DEXAMETHASONE SOD PHOS INJ 10 MG/1 ML VIAL IV SCH (22:45)
[2018-10-11 00:36] VITALS: BP 131/74
== END 2018-10-11 00:35 | disposition home or self-care (01) ==
LOC: ER 12:38
DX: K04.7 Periapical abscess without sinus (principal); R68.84 Jaw pain; R13.10 Dysphagia, unspecified; R25.2 Cramp and spasm; R59.0 Localized enlarged lymph nodes
CPT/HCPCS: 36415; 87040; 84703; 85025; 80053; 70491; J3490; J0295; J1100